=== PATIENT | female | born 1960 | race American Indian/Alaskan Native ===

== ENCOUNTER 2017-08-05 03:20 | Emergency (ER) | payer OTHER ==
[2017-08-05 03:26] VITALS: BP 171/79
[2017-08-05] MEDS ORDERED: MOTRIN ONE (04:10)
[2017-08-05] MEDS ORDERED: DECADRON ONE (04:10)
[2017-08-05] MEDS ORDERED: DECADRON IM ONE (04:15)
[2017-08-05] MEDS ORDERED: MOTRIN PO ONE (04:15)
--- NOTE | 2017-08-05 04:43 | Cat Scan Report ---
FINAL REPORT PROCEDURE: CT NECK WO CON TECHNIQUE: Computerized tomography of the soft tissue neck was performed without contrast material. This study is performed without intravascular contrast material and its sensitivity for pathology, including neoplasms, inflammation, abscess, free fluid, thrombosis, and arterial dissection, is reduced compared with a contrast enhanced study. HISTORY: Right side neck pain/feels like swelling on inside of neck after eating Chicken. COMPARISON: No prior studies are available for comparison. FINDINGS: Skull base: Visualized portions are normal. Paranasal sinuses: Visualized portions are normal. Nasopharynx: Normal. Oral cavity: Normal. Epiglottis/vallecula: Normal. Larynx/pyriform sinuses: Normal. Thyroid gland: Normal. Lymph nodes: None enlarged. Salivary glands: Normal. Upper thorax: Normal. IMPRESSION: Normal Examination.
== END 2017-08-05 10:45 | disposition left against medical advice (07) ==
LOC: ED 03:20
DX: T78.40XA Allergy, unspecified, initial encounter (principal); Z53.21 Procedure and treatment not carried out due to patient leaving prior to being seen by health care provider; Y93.89 Activity, other specified; Y99.8 Other external cause status; Y92.89 Other specified places as the place of occurrence of the external cause
CPT/HCPCS: 70490; J1100